=== PATIENT | female | born 1975 | race Caucasian/White ===

== ENCOUNTER 2019-01-14 16:39 | Inpatient (IN) | payer OTHER ==
[~2019-01-14] VITALS: Ht 157.5 cm; Wt 81.6 kg
[2019-01-14 16:39] VITALS: Ht 157.5 cm; Wt 81.6 kg
--- NOTE | 2019-01-14 17:19 | NUR ---
PT LYING IN BED COMFORTABLY NO DISTRESS ON CM VSS AWAITING MD EVAL AND ORDERS WILL MONITOR
--- NOTE | 2019-01-14 17:20 | NUR ---
DR ZARAGOZA AT BEDSIDE FOR MSE
[2019-01-14 17:48] LABS: BASOPHIL % 1.1 % (0-2); PLATELET COUNT 232 x10^3mcL (130-400); RED CELL DISTRIBUTION WIDTH 14.6 % (11.5-14.5)
[2019-01-14 18:03] LABS: CALCIUM 9.1 mg/dL (8.5-10.1); POTASSIUM SERUM 4.8 mmol/L (3.5-5.1)
[2019-01-14 18:08] LABS: BILIRUBIN TOTAL 0.21 mg/dL (0.20-1.00); PHOSPHOROUS 4.8 mg/dL (2.5-4.9); TOTAL PROTEIN, SERUM 7.1 g/dL (6.4-8.2)
[2019-01-14 18:13] LABS: ALBUMIN 3.2 g/dL (3.4-5.0)
--- NOTE | 2019-01-14 18:50 | NUR ---
URINE COLLECTED SENT TO LAB AND DIPPED.
--- NOTE | 2019-01-14 18:55 | NUR ---
PT AGREED TO STAY IN HOSPITAL FOR FURTHER CARE AFTER SPEAKING WITH HER SISTER. DR ZARAGOZA AWARE.
--- NOTE | 2019-01-14 19:00 | NUR ---
LAB AT BEDSIDE FOR BLOOD DRAW
--- NOTE | 2019-01-14 19:01 | NUR ---
REPORT GIVEN TO SHAILA VITAL RESUMING CARE OF PT AT THIS TIME
--- NOTE | 2019-01-14 19:03 | NUR ---
RECIEVED PT REPORT FROM MIKE VITAL. I WILL NOW ASSUME PRIMARY CARE OF PT
[2019-01-14] MEDS ORDERED: CARISOPRODOL350 MG (19:43)
[2019-01-14] MEDS ORDERED: DULCOLAX10 M1 (19:44)
[2019-01-14] MEDS ORDERED: MYRBETRIQ25 MG (19:44)
[2019-01-14] MEDS ORDERED: GOOD SENSE400 MG/5 M (19:45)
[2019-01-14] MEDS ORDERED: NORCO1 TA2 (19:45)
--- NOTE | 2019-01-14 19:52 | NUR ---
GAVE PT REPORT TO MARY VITAL ON [facility] FLOOR TO NOW ASSUME PRIMARY CARE OF PT. PT BEING ADMITTED AND IN ROON 235B
--- NOTE | 2019-01-14 19:58 | NUR ---
PT WHEELED OUT OF THE ED VIA [facility] BY CHEMO HANNA. PT IS A/O X4. PT IS COOPERATIVE AND WITH NO INCIDENCE
--- NOTE | 2019-01-14 20:03 | NUR ---
RECEIVED PT VIA [facility] FROM E/D, ACCOMPANIED BY RN AND TRANSPORTER. PT A/A/O X 4, COOPERATIVE, ANXIOUS R/T HOSPITAL STAY (STATES THAT SHE WANTS TO GO BACK TO [facility]); NOTABLY, PT STARTED SCREAMING THAT SHE WAS HURTING FROM THE MRSA SWAB, EVEN WHEN EXPLAINED THAT THE SWAB DOES NOT GO DEEP AT ALL (BOTH NARES ARE PATENT AND NO OPEN WOUND). PT IS AMBULATORY (USES MOBILITY CANE, WHICH SHE DOES NOT HAVE WITH HER AT THIS TIME); FALL RISK PROTOCOL IN PLACE 2/2 HX OR RIGHT HIP REPLACEMENT (2014) AND BEING LEGALLY BLIND OU. DENIES CHEST PAIN OR DISCOMFORT AT THIS TIME. NO ACUTE RESPIRATORY DISTRESS NOTED. PT CAME IN FOR LEAKING RIGHT NEPHROSTOMY TUBE; BOTH NEPHROSTOMY SITES ARE CURRENTLY CDI, W/ NO S/S INFECTION OR DRAINAGE. IV SITE RAC 20G, CDI. ORIENTED PT TO ROOM, BED CONTROLS, CALL LIGHT SYSTEM. SIDE RAILS UP X 2, BED IN LOW POSITION. WILL ENDORSE TO AMANUEL HERNANDEZ.
[2019-01-14 20:12] LABS: MAGNESIUM 2.4 mg/dL (1.8-2.4)
[2019-01-14 20:15] LABS: CHOLESTEROL/HDL RATIO 3.1
--- NOTE | 2019-01-14 20:31 | NUR ---
RECEIVED PT FROM ED, NO ACUTE DISTRESS. ORIENTED PT TO ROOM. BED IN LOWEST POSITION, SIDE RAILS UP X2, CALL LIGHT WITHIN REACH. WILL CONTINUE TO MONITOR.
[2019-01-14 20:56] VITALS: BP 118/83
--- NOTE | 2019-01-15 00:05 | NUR ---
PT STATING, "I FEEL FINE, I DONT WANT TO BE HERE. LET ME TALK TO THE DOCTOR." DR ROBBINS INFORMED. WILL CONTINUE TO MONITOR.
[2019-01-15 04:42] VITALS: BP 146/101
--- NOTE | 2019-01-15 06:21 | NUR ---
PT SLEPT PERIODICALLY THROUGHOUT NIGHT, C/O RIGHT FLANK PAIN 5/10, REFUSING PAIN MEDICATION AT THIS TIME. ALL NEEDS MET AND ATTENDED TO. NO SIGNIFICANT CHANGES. IV PATENT AND INTACT. BED IN LOWEST POSITION, SIDE RAILS UP X2, CALL LIGHT WITHIN REACH. WILL ENDORSE CARE TO ONCOMING NURSE.
[2019-01-15 07:00] LABS: CALCIUM 8.9 mg/dL (8.5-10.1); CARBON DIOXIDE 18.4 mmol/L (21-32)
--- NOTE | 2019-01-15 07:13 | NUR ---
RECEIVED PT FROM SHIFT NURSE A/OX4 RESTING IN BED. NO ACUTE DISTRESS NOTED. IV INTACT AND PATENT. FALL PRECAUTIONS IN PLACE. BED IN LOW POSITION. CALL LIGHT WITHIN REACH. WILL CONTINUE TO MONITOR.
[2019-01-15 07:29] LABS: BASOPHIL % 0.6 % (0-2); PLATELET COUNT 234 x10^3mcL (130-400)
[2019-01-15 08:37] VITALS: BP 145/95
--- NOTE | 2019-01-15 10:05 | NUR ---
PT ASLEEP BUT AROUSABLE. NO ACUTE DISTRESS NOTED. CALL LIGHT WITHIN REACH. WILL CONTINUE TO MONITOR.
--- NOTE | 2019-01-15 13:20 | NUR ---
PT LEFT FOR PROCEDURE.
--- NOTE | 2019-01-15 14:32 | NUR ---
PT BACK FROM PROCEDURE. NO ACUTE DISTRESS NOTED. IV INTACT AND PATENT. CALL LIGHT WITHIN REACH. WILL CONTINUE TO MONITOR.
[2019-01-15 15:59] VITALS: BP 129/88
--- NOTE | 2019-01-15 16:11 | NUR ---
GAVE REPORT TO [place] APONTE FROM [facility].
[2019-01-15 16:19] VITALS: BP 129/88
--- NOTE | 2019-01-15 19:45 | NUR ---
PT A/A/O X4. DENIES DIZZINESS AND HEADACHE. BREATH SOUNDS CLEAR. BREATHING EVEN AND UNLABORED ON ROOM AIR. DENIES CHEST PAIN AND PRESSURE. BOWEL SOUNDS ACTIVE. NO C/O N/V AND ABD PAIN. PT WAITING TO BE TR[facility]FFER[facility] TO [facility]. MADE PT COMFORTABLE. WILL CONTINUE TO MONITOR.
--- NOTE | 2019-01-15 20:32 | NUR ---
CALLED [facility] TO GET ESTIMATED TIME OF ARRIVAL. PER [facility] ANOTHER 90 MINUTES. INFORMED PT. WILL CONTINUE TO MONITOR.
--- NOTE | 2019-01-15 22:46 | NUR ---
PT AWAKE AND ALERT WITH NO C/O PAIN. PT WAS TANSFFERED TO [facility]IA [facility] ACCOMPANIED BY [facility].
== END 2019-01-15 22:49 | DRG 698 ==
LOC: ED 16:39 → MU 18:56
PROVIDERS: Emergency Medicine; ADMIT General Practice
PROC: 0T25X0Z Change Drainage Device in Kidney, External Approach (ICD-10-PCS; principal; 2019-01-14)
DX: T83.032A Leakage of nephrostomy catheter, initial encounter (principal); N17.0 Acute kidney failure with tubular necrosis; H54.8 Legal blindness, as defined in USA; E78.5 Hyperlipidemia, unspecified; R74.0 Nonspecific elevation of levels of transaminase and lactic acid dehydrogenase [LDH]; Z68.32 Body mass index [BMI] 32.0-32.9, adult; Y84.6 Urinary catheterization as the cause of abnormal reaction of the patient, or of later complication, without mention of misadventure at the time of the procedure; Y92.009 Unspecified place in unspecified non-institutional (private) residence as the place of occurrence of the external cause
CPT/HCPCS: 50389; 50430; 83880; C1729; C1887; J1644; J1956; J2001; J7030; Q9967